=== PATIENT | female | born 1980 | race Asian ===

== ENCOUNTER 2022-01-20 18:32 | Inpatient (IN) | payer OTHER ==
[2022-01-20] MEDS ORDERED: Bupivacaine 0.25% HCL 30 ML VIAL ONE (19:56)
[2022-01-20] MEDS ORDERED: hydrALAZINE 20 MG/ML VIAL SLOW IVP PRN (19:56)
[2022-01-20 22:05] LABS: FFN Internal QC Analyzer PASS (PASS); FFN Internal QC Cassette PASS (PASS); Fetal Fibronectin Negative (Negative)
[2022-01-20 22:27] LABS: Bilirubin Neg (Negative); Blood, Urine 50 (Negative); Clarity Clear (Clear); Glucose, Urine (Dipstick) Normal (Negative); Ketone, Urine 150 mg/dL (Negative); Leukocyte 500 (Negative); Nitrite Negative (Negative); Protein, Urine (Dipstick) Negative (Neg-Trace); Urobilinogen Normal mg/dL (Less than 2)
[2022-01-20 22:55] LABS: Urine Culture Reflex No No
[2022-01-20 23:03] LABS: Bacteria/HPF 1+ HPF (None Seen); RBC/HPF 0-3 HPF (0-3); Squamous Epithelial 0-3 HPF (0-3)
[2022-01-21] MEDS ORDERED: Butorphanol Tartrate 1 MG/ML VIAL SLOW IVP PRN (00:43)
[2022-01-21] MEDS ORDERED: Promethazine HCl 25 MG/ML VIAL IM PRN (00:43)
[2022-01-21] MEDS ORDERED: Lidocaine 1% (PF) 30 ML VIAL SC PRN (00:43)
[2022-01-21] MEDS ORDERED: Misoprostol 200 MCG TAB PR PRN (00:43)
[2022-01-21] MEDS ORDERED: Ondansetron PF 4 MG/2 ML Vial IVP PRN (00:43)
[2022-01-21] MEDS ORDERED: Diphenoxylate HCl/Atropine Tablet PO PRN (00:43)
[2022-01-21] MEDS ORDERED: Carboprost 250 MCG/ML AMP IM PRN (00:43)
[2022-01-21] MEDS ORDERED: Methylergonovine 0.2 MG/ML VIAL IM PRN (00:43)
[2022-01-21] MEDS ORDERED: hydrALAZINE 20 MG/ML VIAL SLOW IVP PRN (00:43)
[2022-01-21] MEDS ORDERED: Lactated Ringer's 1,000 ML IV SCH ×2 (00:45→02:00)
[2022-01-21] MEDS ORDERED: Terbutaline Sulfate 1 MG/ML VIAL SC PRN (00:47)
[2022-01-21] MEDS ORDERED: Betamet Acet/Betamet Na Ph 30 MG/5 ML VIAL ONE (01:07)
[2022-01-21] MEDS ORDERED: Terbutaline Sulfate 1 MG/ML VIAL ONE (01:07)
[2022-01-21] MEDS ORDERED: Penicillin G Potassium 5 MILL.UNITS in Sodium Chloride 0.9% 100 ML IVPB SCH (02:00)
[2022-01-21 02:42] LABS: Hemoglobin 12.1 g/dL (12.0-15.5); Mean Corpuscular HGB CONC 35.4 g/dL (32.0-36.0); Mean Corpuscular Hemoglobin 31.1 pg (27.0-33.0); Mean Corpuscular Volume 87.9 fl (81.6-98.3); Mean Platelet Volume 9.6 fl (7.4-10.4); Platelet Count 144 10x3/uL (150-450); RBC Distribution Width 12.3 % (11.5-14.5); Red Blood Cell (RBC) Count 3.89 10x6/uL (3.90-5.03); White Blood Cell (WBC) Count 9.8 10x3/uL (3.5-10.5)
[2022-01-21 03:24] LABS: Syphilis Antibody Nonreactive (Nonreactive); Syphilis Antibody Index 0.04 S/CO (<1.00 Non-Reactive)
[2022-01-21 03:26] LABS: HBSAg Index 0.17 S/CO (0-0.99); Hep B Surf Ag Non-Reactive S/CO (NonReactive)
[2022-01-21 04:36] VITALS: BMI 25.7
[2022-01-21] MEDS: Penicillin G 2.5 MILL.units 2.5 MILL.UNITS in Premix Bag 1 BAG IVPB SCH ×5 (06:27→22:30)
[2022-01-22] MEDS: Betamet Acet/Betamet Na Ph 30 MG/5 ML VIAL IM SCH (01:10)
[2022-01-22] MEDS: Penicillin G 2.5 MILL.units 2.5 MILL.UNITS in Premix Bag 1 BAG IVPB SCH ×4 (02:30→14:28)
[2022-01-22 06:28] LABS: SARS-CoV-2 NAA Rapid Test Not Detected (NotDetected)
[2022-01-22 10:49] LABS: Group B Streptococcus by PCR Not Detected (NotDetected)
[2022-01-22] MEDS: NS w/ Oxytocin 30 units 500 ML IV SCH ×2 (12:32→18:35)
[2022-01-22] MEDS ORDERED: Fentanyl 2 mcg/Bup 0.1% Cadd 100 ML ONE (16:12)
[2022-01-22] MEDS ORDERED: Tranexamic Acid 1,000 MG/10 ML VIAL ONE (18:37)
[2022-01-22 18:55] LABS: Critical Notified Whom: South
[2022-01-22 18:56] LABS: Critical Notified Whom: South; pH (Cord, venous) 7.342 (7.250-7.350)
[2022-01-22] MEDS ORDERED: Methylergonovine 0.2 MG/ML VIAL IM PRN (22:54)
[2022-01-22] MEDS ORDERED: Benzocaine-Menthol 82.5 ML CAN TOP PRN (22:54)
[2022-01-22] MEDS ORDERED: Milk Of Magnesia 30 ML UDCUP PO PRN (22:54)
[2022-01-22] MEDS ORDERED: Bisacodyl 10 MG SUPP PR PRN (22:54)
[2022-01-22] MEDS ORDERED: hydrALAZINE 20 MG/ML VIAL SLOW IVP PRN (22:54)
[2022-01-22] MEDS ORDERED: Boostrix 0.5 ML (Tdap) VIAL (>/=7 yrs of age) IM ONE (22:54)
[2022-01-22] MEDS ORDERED: HYDROcodone/Acetaminophen 5/325 mg Tablet PO PRN (22:54)
[2022-01-22] MEDS ORDERED: NS w/ Oxytocin 30 units 500 ML IV SCH (23:15)
[2022-01-22] MEDS ORDERED: Docusate 100 MG CAP PO SCH (23:30)
[2022-01-23] MEDS: Ibuprofen 800 MG TAB PO SCH ×3 (00:12→18:05)
[2022-01-23] MEDS: Docusate 100 MG CAP PO SCH ×2 (08:12→21:21)
[2022-01-23] MEDS: Prenatal Vitamin 1 TAB PO SCH (08:13)
[2022-01-23] MEDS: Ferrous Sulfate 325 MG TAB PO SCH ×2 (08:13→18:05)
[2022-01-23] MEDS: HYDROcodone/Acetaminophen 5/325 mg Tablet PO PRN ×3 (10:51→21:29)
[2022-01-23] MEDS: Penicillin G 2.5 MILL.units 2.5 MILL.UNITS in Premix Bag 1 BAG IVPB SCH (16:14)
[2022-01-23] MEDS: Betamet Acet/Betamet Na Ph 30 MG/5 ML VIAL IM SCH (16:14)
[2022-01-23 22:47] VITALS: BP 104/56; TEMP 98.4
[2022-01-24] MEDS: Ibuprofen 800 MG TAB PO SCH ×2 (00:44→08:40)
[2022-01-24] MEDS: Ferrous Sulfate 325 MG TAB PO SCH (07:45)
[2022-01-24] MEDS: Prenatal Vitamin 1 TAB PO SCH (08:39)
[2022-01-24] MEDS: Docusate 100 MG CAP PO SCH (08:40)
[2022-01-24] MEDS: HYDROcodone/Acetaminophen 5/325 mg Tablet PO PRN (12:21)
== END 2022-01-24 13:15 | disposition home or self-care (01) | DRG 768 ==
LOC: CSHLD/OP 18:32 → CSHLD 01-21 04:00 → CSHPP 01-22 21:14
PROVIDERS: ADMIT Obstetrics & Gynecology; ATTEND Obstetrics & Gynecology
PROC: 10E0XZZ Delivery of Products of Conception, External Approach (ICD-10-PCS; principal; 2022-01-22)
PROC: 0DQR0ZZ Repair Anal Sphincter, Open Approach (ICD-10-PCS; 2022-01-22)
DX: O60.14X0 Preterm labor third trimester with preterm delivery third trimester, not applicable or unspecified (principal); Z37.0 Single live birth; O70.20 Third degree perineal laceration during delivery, unspecified; Z20.822 Contact with and (suspected) exposure to COVID-19; Z3A.35 35 weeks gestation of pregnancy; O24.425 Gestational diabetes mellitus in childbirth, controlled by oral hypoglycemic drugs; Z79.84 Long term (current) use of oral hypoglycemic drugs
CPT/HCPCS: 36416; 51701; 81001; 82731; 82805; 85027; 86780; 86850; 86900; 86901; 87086; 87340; 87653; 88307; 99285; J0702; J2540; J2590; J3105; J3490; S0020; U0002

== ENCOUNTER 2022-07-29 08:31 | Day surgery (SDC) | payer OTHER ==
[2022-07-28 10:16] VITALS: BMI 24.2
[2022-07-28 17:11] LABS: Hemoglobin 14.7 g/dL (12.0-15.5); Mean Corpuscular HGB CONC 34.8 g/dL (32.0-36.0); Mean Corpuscular Hemoglobin 30.3 pg (27.0-33.0); Mean Corpuscular Volume 87.2 fl (81.6-98.3); Platelet Count 234 10x3/uL (150-450); RBC Distribution Width 11.4 % (11.5-14.5); Red Blood Cell (RBC) Count 4.85 10x6/uL (3.90-5.03); White Blood Cell (WBC) Count 9.4 10x3/uL (3.5-10.5)
[2022-07-28 17:24] LABS: BHCG - Serum Negative (NEGATIVE); Pregs Control Background? CLEAR/WHITE (CLR/WHITE); Pregs Control Bar Appear? YES (CONTROL BAR)
[2022-07-29] MEDS ORDERED: CEFAZOLIN 2 GM VIAL ONE (10:21)
[2022-07-29] MEDS ORDERED: Fentanyl 100 MCG/2 ML VIAL ONE (10:21)
[2022-07-29] MEDS ORDERED: Dexamethasone 4 mg/ml Vial ONE (10:22)
[2022-07-29] MEDS ORDERED: Ketorolac Tromethamine 30 MG/ML VIAL ONE (10:22)
[2022-07-29] MEDS ORDERED: Ondansetron PF 4 MG/2 ML Vial ONE ×2 (10:22→10:43)
[2022-07-29] MEDS ORDERED: Lidocaine 4% PF 5 ML AMP ONE (10:36)
== END 2022-07-29 12:35 | disposition home or self-care (01) ==
LOC: CSHSDC 08:31
PROVIDERS: ATTEND Obstetrics & Gynecology
PROC: 0UPD0HZ Removal of Contraceptive Device from Uterus and Cervix, Open Approach (ICD-10-PCS; principal; 2022-07-29)
DX: T83.32XA Displacement of intrauterine contraceptive device, initial encounter (principal); Y83.1 Surgical operation with implant of artificial internal device as the cause of abnormal reaction of the patient, or of later complication, without mention of misadventure at the time of the procedure
CPT/HCPCS: 84703; 85027; 86850; 86900; 86901; J1100; J1885; J2405; J3010

== ENCOUNTER 2024-04-15 14:25 | Outpatient (CLI) | payer OTHER | END 2024-04-15 14:26 | disposition home or self-care (01) | LOC: CSHMAMMO 14:25 | PROVIDERS: ATTEND Family Medicine | DX: Z12.31 Encounter for screening mammogram for malignant neoplasm of breast (principal); R92.8 Other abnormal and inconclusive findings on diagnostic imaging of breast | CPT/HCPCS: 77063; 77067 ==

== ENCOUNTER 2024-05-06 13:58 | Outpatient (CLI) | payer OTHER | END 2024-05-06 13:59 | disposition home or self-care (01) | LOC: CSHMAMMO 13:58 | PROVIDERS: ATTEND Family Medicine | DX: N64.89 Other specified disorders of breast (principal) | CPT/HCPCS: G0279 ==